=== PATIENT | female | born 1950 | race Hispanic/Latino ===

== ENCOUNTER 2023-12-02 09:14 | Observation (INO) | payer MEDICARE, MEDICAID ==
[2023-11-29 11:55] LABS: BASOPHILS % 0.4 % (0.0-1.0); EOSINOPHILS # (AUTO) 0.2 (0.0-0.4); EOSINOPHILS % 3.5 % (0.0-6.0); HEMATOCRIT 39.5 % (34.2-44.1); HEMOGLOBIN 13.6 g/dL (12.0-16.0); LYMPHOCYTES # (AUTO) 1.7 (1.0-3.2); MEAN CORPUSCULAR HEMOGLOBIN 30.8 pg (28-32); MEAN CORPUSCULAR HGB CONC 34.4 g/dL (31-35); MEAN CORPUSCULAR VOLUME 89.6 fL (81-99); MONOCYTES # (AUTO) 0.4 (0.2-0.8); MONOCYTES % 9.1 % (4.4-11.3); NEUTROPHILS # (AUTO) 2.3 (2.1-6.9); NEUTROPHILS % 50.8 % (38.7-80.0); PLATELET COUNT 267 x10e3/uL (140-360); RED BLOOD COUNT 4.41 x10e6/uL (3.6-5.1); RED CELL DISTRIBUTION WIDTH 12.3 % (11.7-14.4); WHITE BLOOD COUNT 4.61 x10e3/uL (4.8-10.8)
[~2023-12-02] VITALS: Ht 152.4 cm; Wt 62.6 kg
[~2023-12-02 09:14] MED LIST: LOTREL 5-20 MG1 EACH; NABUMETONE500 MG
[2023-12-02] MEDS: CELECOXIB 200 MG CAP ONE (10:05)
[2023-12-02] MEDS: CEFAZOLIN SODIUM 2 GM ONE (10:05)
[2023-12-02] MEDS: LACTATED RINGER'S 1,000 ML ONE (10:06)
[2023-12-02] MEDS: DEXAMETHASONE SOD PHOS 10 MG/1 ML VIAL ONE (10:06)
[2023-12-02] MEDS: GABAPENTIN 300 MG CAP ONE (10:07)
[2023-12-02] MEDS ORDERED: SODIUM CHLORIDE 0.9% 500ML 500 ML ONE (11:12)
[2023-12-02] MEDS ORDERED: Vancomycin IV 500 MG ONE (11:12)
[2023-12-02] MEDS ORDERED: TRANEXAMIC ACID 20 ML ONE (11:12)
[2023-12-02] MEDS ORDERED: ONDANSETRON HCL INJ 2MG/ML 2ML 2 MG/ML VIAL IV PRN (13:00)
[2023-12-02] MEDS: SODIUM CHLORIDE 0.9% 1000ML 1,000 ML IV SCH (13:00)
[2023-12-02] MEDS ORDERED: DIPHENHYDRAMINE HCL INJ 50 MG/ML VIAL IV PRN (13:00)
[2023-12-02] MEDS ORDERED: DOCUSATE SODIUM 100 MG CAP PO PRN (13:00)
[2023-12-02] MEDS ORDERED: ONDANSETRON HCL INJ 2MG/ML 2ML 2 MG/ML VIAL ONE (13:34)
[2023-12-02] MEDS ORDERED: ACETAMINOPHEN 1000 MG/100 ML IV ONE (13:34)
[2023-12-02] MEDS ORDERED: LIDOCAINE HCL 2% LOCAL INJ 5 ML SDV VIAL INJ ONE (13:34)
[2023-12-02] MEDS ORDERED: DEXAMETHASONE SOD PHOS INJ 4 MG/ML SDV ONE (13:34)
[2023-12-02] MEDS ORDERED: PROPOFOL IV EMULSION 10 MG/ML 20 ML VIAL ONE (13:34)
[2023-12-02] MEDS ORDERED: DEXMEDETOMIDINE HCL 200 MCG/2 ML VIAL ONE (13:34)
[2023-12-02] MEDS ORDERED: SEVOFLURANE INHAL SOLN 250 ML PEN BTL ONE (13:34)
[2023-12-02] MEDS: ONDANSETRON HCL INJ 2MG/ML 2ML 2 MG/ML VIAL IV ONE (14:40)
[2023-12-02] MEDS ORDERED: ROPIVACAINE 0.5% 5 MG/ML 30 ML SDV ONE (14:44)
[2023-12-02] MEDS ORDERED: EPINEPHRINE HCL 1:1000 1ML 1 MG/ML AMP ONE (14:44)
[2023-12-02] MEDS ORDERED: FENTANYL CITRATE/PF 100MCG/2 ML INJ ONE ×2 (16:00→16:07)
[2023-12-02] MEDS ORDERED: MIDAZOLAM HCL 2 MG/2 ML VIAL ONE (16:07)
[2023-12-02] MEDS: ROPIVACAINE 246.25 MG, EPINEPHRINE HCL 1:1000 1ML 0.5 MG, CLONIDINE HCL 0.08 MG, KETORO... INJ ONE (16:27)
[2023-12-02 16:57] VITALS: BP 131/60; PULSE 77; RESP 17; TEMP 97.3; O2SAT 99
[2023-12-02] MEDS ORDERED: CELECOXIB 100 MG CAP PO SCH (17:00)
[2023-12-02] MEDS ORDERED: ASPIRIN 325 MG TAB PO SCH (17:00)
[2023-12-02 17:39] VITALS: BP 131/60; PULSE 77; RESP 17; TEMP 97.2; O2SAT 99
[2023-12-02 20:29] VITALS: BP 114/62; PULSE 82; RESP 17; TEMP 97.4; O2SAT 97
[2023-12-02] MEDS: ASPIRIN 325 MG TAB PO SCH (21:50)
[2023-12-02] MEDS: CELECOXIB 200 MG CAP PO SCH (21:50)
[2023-12-03] VITALS (7 sets, daily range): BP systolic 110–127; BP diastolic 58–72; PULSE 73–79; RESP 17–20; TEMP 97.6–98.2; O2SAT 92–99
[2023-12-03 04:48] LABS: BASOPHILS % 0.1 % (0.0-1.0); HEMATOCRIT 33.5 % (34.2-44.1); HEMOGLOBIN 11.6 g/dL (12.0-16.0); LYMPHOCYTES # (AUTO) 0.9 (1.0-3.2); LYMPHOCYTES % 9.1 % (18.0-39.1); MEAN CORPUSCULAR HEMOGLOBIN 30.8 pg (28-32); MEAN CORPUSCULAR HGB CONC 34.6 g/dL (31-35); MEAN CORPUSCULAR VOLUME 88.9 fL (81-99); MONOCYTES # (AUTO) 0.3 (0.2-0.8); MONOCYTES % 3.3 % (4.4-11.3); NEUTROPHILS # (AUTO) 8.2 (2.1-6.9); NEUTROPHILS % 87.2 % (38.7-80.0); PLATELET COUNT 193 x10e3/uL (140-360); RED BLOOD COUNT 3.77 x10e6/uL (3.6-5.1); RED CELL DISTRIBUTION WIDTH 12.1 % (11.7-14.4); WHITE BLOOD COUNT 9.41 x10e3/uL (4.8-10.8)
[2023-12-03 05:08] LABS: ANION GAP 13.4 mmol/L (8-16); CALCIUM 9.9 mg/dL (8.4-10.2); CREATININE, SERUM 0.77 mg/dL (0.57-1.11); POTASSIUM 4.4 mmol/L (3.5-5.1)
[2023-12-03] MEDS: ACETAMINOPHEN 1000 MG/100 ML IV PRN (06:57)
[2023-12-03] MEDS: HYDROCODONE/APAP 7.5MG-325MG 1 EA TAB PO PRN (09:37)
[2023-12-03] MEDS ORDERED: ASPIRIN81 MG PO (16:31)
[2023-12-03] MEDS ORDERED: ONDANSETRON HCL 4 MG ORAL DISINTEGRATING TAB PO PRN (17:15)
[2023-12-03] MEDS: HYDROCODONE/APAP 5MG-325MG TAB PO PRN (17:48)
== END 2023-12-03 18:06 | disposition home health service (06) ==
LOC: OR 09:14 → PACU V 12:57 → MED/SURG 17:15
PROVIDERS: ADMIT Specialist; ATTEND Specialist
DX: M17.11 Unilateral primary osteoarthritis, right knee (principal); I11.9 Hypertensive heart disease without heart failure; R11.2 Nausea with vomiting, unspecified; R42 Dizziness and giddiness; Z01.812 Encounter for preprocedural laboratory examination; Z01.818 Encounter for other preprocedural examination; Z79.899 Other long term (current) drug therapy; Z79.82 Long term (current) use of aspirin
CPT/HCPCS: 27447; 36415 ×2; 71046; 73560; 80048; 85025 ×2; 86850; 86900; 94799 ×2; 97110; 97116 ×2; 97161; 97530 ×3; C1713 ×2; C1776 ×3; G0378 ×2; J0131 ×2; J0171; J0690 ×2; J1100 ×2; J1885; J2001; J2250; J2405; J2704; J2795; J3010; J3370; J7030 ×2; J7040; J7121; Q0162

== ENCOUNTER → 2024-08-31 | Outpatient (REF) | payer MEDICARE, MEDICAID ==
[~2024-08-31] MED LIST changes: +ASPIRIN81 MG PO
== END ==
LOC: RAD 11:05
PROVIDERS: ATTEND Family Medicine
DX: Z01.810 Encounter for preprocedural cardiovascular examination (principal)
CPT/HCPCS: 71046; 93005

== ENCOUNTER → 2024-09-28 | Day surgery (SDC) | payer MEDICARE, MEDICAID ==
[~2024-09-28] MED LIST changes: +ACETAMINOPHEN 1000 MG/100 ML IV PRN; +ALENDRONATE SOD70 MG PO; +AMLODIPINE-BEN1 EAC4 PO; +ASPIRIN 325 MG TAB PO SCH; +BUPIVACAINE/EPI 0.5% 30ML SDV-MPF INJ ONE; +CELECOXIB 100 MG CAP PO SCH; +CRESTOR40 MG PO; +DIPHENHYDRAMINE HCL INJ 50 MG/ML VIAL IV PRN; +DOCUSATE SODIUM 100 MG CAP PO PRN; +EPHEDRINE SULFATE INJ 50 MG/ML VIAL ONE; +ESMOLOL HCL 100MG/10ML 10 MG/ML VIAL ONE; +FAMOTIDINE 20 MG/2 ML VIAL IV ONE; +FENTANYL CITRATE/PF 100MCG/2 ML INJ ONE; +GLYCOPYRROLATE INJ 0.2 MG/ML VIAL ONE; +HYDROCODONE/APAP 5MG-325MG TAB PO PRN; +HYDROCODONE/APAP 7.5MG-325MG 1 EA TAB PO PRN; +LIDOCAINE HCL 2% LOCAL INJ 5 ML SDV VIAL INJ ONE; +MIDAZOLAM HCL 2 MG/2 ML VIAL ONE; +ONDANSETRON HCL INJ 2MG/ML 2ML 2 MG/ML VIAL IV PRN; +ONDANSETRON HCL INJ 2MG/ML 2ML 2 MG/ML VIAL ONE; +PANTOPRAZOLE SO40 MG PO; +PROPOFOL IV EMULSION 10 MG/ML 20 ML VIAL ONE; +ROPIVACAINE/EPI/CLONIDINE/KET 50 ML SYRINGE INJ ONE; +SODIUM CHLORIDE 0.9% 1000ML 1,000 ML IV SCH
[2024-09-28] MEDS: CEFAZOLIN SODIUM 2 GM ONE (08:28)
[2024-09-28] MEDS: GABAPENTIN 300 MG CAP ONE (08:28)
[2024-09-28] MEDS: CELECOXIB 200 MG CAP ONE (08:28)
[2024-09-28] MEDS: DEXAMETHASONE SOD PHOS 10 MG/1 ML VIAL ONE (08:28)
[2024-09-28] MEDS: LACTATED RINGER'S 1,000 ML ONE (08:28)
[2024-09-28] MEDS: ONDANSETRON HCL INJ 2MG/ML 2ML 2 MG/ML VIAL ONE (13:02)
[2024-09-28 15:55] VITALS: BP 116/59; PULSE 78; RESP 16; O2SAT 94
== END | disposition home health service (06) ==
LOC: OR 07:46
PROVIDERS: ATTEND Specialist
DX: M17.12 Unilateral primary osteoarthritis, left knee (principal); I10 Essential (primary) hypertension; E78.5 Hyperlipidemia, unspecified; K21.9 Gastro-esophageal reflux disease without esophagitis; Z01.812 Encounter for preprocedural laboratory examination; Z79.82 Long term (current) use of aspirin; Z79.899 Other long term (current) drug therapy
CPT/HCPCS: 27447; 73560; 86850; 86900; 97110; 97116; 97161; 97530; C1713 ×2; C1776 ×3; J0690; J1100; J2003; J2250; J2405; J2704; J3010; J7121